=== PATIENT | female | born 1950 | race Caucasian/White ===

== ENCOUNTER 2016-11-20 07:03 | Emergency (ER) | payer OTHER, MEDICARE ==
[2016-11-20] MEDS ORDERED: predniSONE 20 MG TAB PO ONE (07:25)
[2016-11-20] MEDS ORDERED: IPRATROPIUM/ALBUTEROL 3 ML DEYVIAL IH ONE (07:25)
--- NOTE | 2016-11-20 07:28 | UCPHY ---
H & P Patient Type: Established Chief Complaint Nursing Narrative: c/o cough, congestion x 2 weeks, seen by primary care, took course of azithromycin and prednisone w/o improvement. usually on oxygen only at night, now requiring oxygen 24 hours a day Time Seen by Provider: 11/20/16 07:16 HPI/ROS: CHIEF COMPLAINT: Cough HISTORY OF PRESENT ILLNESS: Patient is a 66-year-old female who comes to the Urgent Care complaining of a persistent cough and shortness of breath. She has a history of COPD and wears oxygen at night. She has recently began to wear oxygen during the day as well because she felt short of breath with exertion. She saw her primary care physician last week who prescribed her azithromycin, a course of steroids and a rescue inhaler. She states that she felt slightly better after 3 or 4 days that her symptoms returned. She has not been febrile. She denies any chest pain. She has had a runny nose. REVIEW OF SYSTEMS: Constitutional: See HPI EENTM: See HPI Respiratory: See HPI Cardiac: denies: chest pain, irregular heart rate, lightheadedness, palpitations Gastrointestinal/Abdominal: denies: abdominal pain, diarrhea, nausea, vomiting, blood streaked stools Genitourinary: denies: dysuria, frequency, hematuria, pain Musculoskeletal: denies: joint pain, muscle pain Skin: denies: lesions, rash, jaundice, bruising Neurological: denies: headache, numbness, paresthesia, tingling, dizziness, weakness Hematologic/Lymphatic: denies: blood clots, easy bleeding, easy bruising Immunologic/allergic: denies: HIV/AIDS, transplant EXAM: GENERAL: Well-appearing, well-nourished and in no acute distress. HEAD: Atraumatic, normocephalic. EYES: Pupils equal round and reactive to light, extraocular movements intact, sclera anicteric, conjunctiva are normal. ENT: TMs normal, nares patent, oropharynx clear without exudates. Moist mucous membranes. NECK: Normal range of motion, supple without lymphadenopathy or JVD. LUNGS: left Lower lobe rhonchi HEART: Regular rate and rhythm without murmurs, rubs or gallops. ABDOMEN: Soft, nontender, normoactive bowel sounds. No guarding, no rebound. No masses appreciated. BACK: No CVA tenderness, no spinal tenderness, step-offs or deformities EXTREMITIES: Normal range of motion, no pitting or edema. No clubbing or cyanosis. NEUROLOGICAL: Cranial nerves II through XII grossly intact. Normal speech, normal gait. 5/5 strength, normal movement in all extremities, normal sensation PSYCH: Normal mood, normal affect. SKIN: Warm, dry, normal turgor, no visible rashes or lesions. Source: Patient Exam Limitations: No limitations - Personal History Tetanus Vaccine Date: , 10 YRS - Medical/Surgical History Hx Asthma: No Hx Chronic Respiratory Disease: Yes Hx Diabetes: No Hx Cardiac Disease: No Hx Renal Disease: No Hx Cirrhosis: No Hx Alcoholism: No Hx HIV/AIDS: No Hx Splenectomy or Spleen Trauma: No Other PMH: COPD - Family History Significant Family History: No pertinent family hx - Social History Smoking Status: Former smoker Alcohol Use: Sober Drug Use: None Constitutional: Initial Vital Signs Temperature (C) 36.8 C 11/20/16 07:18 Heart Rate 70 11/20/16 07:18 Respiratory Rate 20 11/20/16 07:18 Blood Pressure 133/61 H 11/20/16 07:18 O2 Sat (%) 94 11/20/16 07:18 O2 Delivery Mode Nasal Cannula O2 (L/minute) 2 Allergies/Adverse Reactions: Penicillins Allergy (Severe, Verified 07/14/16 10:00) Anaphylaxis oxycodone Allergy (Verified 11/20/16 07:16) ENVIRONMENTAL Allergy (Mild, Uncoded 07/14/16 10:00) NASAL CONGESTION Home Medications: Medication Instructions Recorded Acyclovir 07/14/16 AZITHROMYCIN [Z-PACK] 250 mg PO DAILY #6 tab 11/20/16 Albuterol [Proventil Neb] 3 ml IH QID PRN #30 deyvial 11/20/16 Inhaler, Assist Devices 11/20/16 predniSONE 60 mg PO DAILY #15 tab 11/20/16 Medical Decision Making - Diagnostics Imaging: X-ray: chest x-ray was obtained. I viewed the images myself on the PACS system. My interpretation of the images is: Bronchitis. The radiologist interpretation is pending. ED Course/Re-evaluation: 8:30 a.m. the patient is feeling much better after a nebulizer. She is asking to have 1 of these at home. She states that they worked better for her than the inhalers. She partially improved from her previous course. I think that she may need a 2nd 5 day course of steroids and azithromycin. I will also write her prescription for a nebulizer. She is happy with this plan. Her room air saturation is 93%. She declines further workup or testing at this time and is eager to go home. We discussed indications for returning. Differential Diagnosis: Partial list of the Differential diagnosis considered include but were not limited to; bronchitis, pneumonia, COPD exacerbation and although unlikely based on the history and physical exam, I also considered pneumothorax, PE, acute coronary disease. I discussed these differential diagnoses and the plan with the patient as well as the usual and expected course. The patient understands that the diagnosis is provisional and that in medicine we are not always correct and that further workup is often warranted. Usual and customary warnings were given. All of the patient's questions were answered. The patient was instructed to return to the emergency department should the symptoms at all worsen or return, otherwise to followup with the physician as we discussed. - Data Points Medications Given: Discontinued Medications Albuterol/Ipratropium (Duoneb) 3 ml IH EDNOW ONE Stop: 11/20/16 07:26 Last Admin: 11/20/16 07:40 Dose: 3 ml Prednisone (Prednisone) 60 mg PO EDNOW ONE Stop: 11/20/16 07:26 Last Admin: 11/20/16 07:40 Dose: 60 mg Departure - Departure Disposition: Home, Routine, Self-Care Clinical Impression: COPD exacerbation, Bronchitis Condition: Fair Instructions: Acute Bronchitis (ED), COPD (Chronic Obstructive Pulmonary Disease) (ED) Referrals: Teddy Heller MD [Primary Care Provider] - As per Instructions Prescriptions: Albuterol [Proventil Neb] 3 ml IH QID PRN #30 deyvial PRN Reason: Short Of Breath/Dyspnea AZITHROMYCIN [Z-PACK] 250 mg PO DAILY #6 tab predniSONE 60 mg PO DAILY #15 tab - PQRS PQRS Measurement: 134: Depression screening and followup, PRIME MCMAHON-PHQ2 (12 years and older) Over the last 2 weeks, how often have you been bothered by any of the following problems? 1. Feeling down, depressed, or hopeless? 2. Little interest or pleasure in doing things? Patient answered no to both 1 and 2 130: Documentation of medications. Reviewed all patient medications, doses, route and frequency. 226: Do you smoke? No. 47: 65 and older: Advanced care planning. Patient designates surrogate decision maker as spouse . Patient has advanced directive. 51: 18 years old and older with diagnosis of COPD, spirometry performance. Spirometry not performed; equipment not available. 52: 18 years old and older with COPD and symptoms of COPD or FEV1<60% predicted prescribed a B Agonist. Yes
[2016-11-20 07:36] VITALS: BP 133/61; PULSE 70; RESP 20; TEMP 98.2; O2SAT 94
== END 2016-11-20 08:43 | disposition home or self-care (01) ==
LOC: CED 07:03
DX: J44.0 Chronic obstructive pulmonary disease with (acute) lower respiratory infection (principal); Z87.891 Personal history of nicotine dependence
CPT/HCPCS: 71020; G0463; 99214-PO

== ENCOUNTER → 2017-12-12 | Outpatient (CLI) | payer OTHER, MEDICARE | LOC: FIMAGING 12:49 | PROVIDERS: ATTEND Internal Medicine Critical Care Medicine | DX: R91.1 Solitary pulmonary nodule (principal); J43.9 Emphysema, unspecified; J42 Unspecified chronic bronchitis; R09.02 Hypoxemia ==